=== PATIENT | female | born 1975 | race Caucasian/White ===

== ENCOUNTER 2016-06-24 20:18 | Emergency (ER) | payer MEDICAID ==
[2016-06-24 20:44] VITALS: BP 144/88
== END 2016-06-24 20:44 | disposition home or self-care (01) ==
LOC: ED 20:18
DX: K04.7 Periapical abscess without sinus (principal); E11.9 Type 2 diabetes mellitus without complications; Z79.84 Long term (current) use of oral hypoglycemic drugs